=== PATIENT | male | born 1970 | race African-American/Black ===

== ENCOUNTER 2022-07-23 12:43 | Emergency (ER) | payer OTHER, BC ==
[2022-07-23 12:53] VITALS: RESP 17
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
[2022-07-23 14:16] VITALS: BP 144/96; PULSE 89; TEMP 98
== END 2022-07-23 14:20 | disposition home or self-care (01) ==
LOC: EC 12:43
DX: S09.90XA Unspecified injury of head, initial encounter (principal); M25.512 Pain in left shoulder; Z87.891 Personal history of nicotine dependence; Z88.0 Allergy status to penicillin; V49.40XA Driver injured in collision with unspecified motor vehicles in traffic accident, initial encounter
CPT/HCPCS: 70450; 72125; 99285